=== PATIENT | male | born 1990 | race Caucasian/White ===

== ENCOUNTER 2020-04-04 17:00 | Emergency (ER) | payer SELFPAY ==
[~2020-04-04] VITALS: Ht 167.6 cm; Wt 76.0 kg
[2020-04-04 17:09] VITALS: BP 130/78
== END 2020-04-04 17:18 | disposition left against medical advice (07) ==
LOC: ER 17:00
DX: F10.129 Alcohol abuse with intoxication, unspecified (principal); Y90.0 Blood alcohol level of less than 20 mg/100 ml; Z53.21 Procedure and treatment not carried out due to patient leaving prior to being seen by health care provider